=== PATIENT | male | born 1995 | race Caucasian/White ===

== ENCOUNTER 2018-04-15 19:19 | Emergency (ER) | payer SELFPAY ==
[~2018-04-15] VITALS: Ht 185.4 cm; Wt 82.2 kg
[~2018-04-15 19:19] MED LIST: ADDERALL15 MG OR; AMOXICILLIN875 MG OR; BACTRIM DS1 TAB OR; CLINDAMYCIN300 M1 PO; DOXYCYC MONO100 M1 OR; KEFLEX500 MG OR; NAPROSYN500 MG PO; NO HOME MEDS; PERCOCET 5/325M1 TAB OR; ULTRAM50 MG PO; ZITHROMAX250 MG PO; ZOFRAN4 MG/TAB PO
[2018-04-15 20:31] LABS: URINE BILIRUBIN - DIPSTICK NEGATIVE (NEGATIVE); URINE BLOOD DIPSTICK MODERATE (NEGATIVE); URINE COLOR YELLOW; URINE GLUCOSE - DIPSTICK NEGATIVE (NEGATIVE); URINE KETONE TRACE mg/dL (NEGATIVE); URINE LEUK ESTERASE LARGE (Negative); URINE NITRITE - DIPSTICK NEGATIVE (Negative); URINE PH 6.5 (4.5-8.0); URINE PROTEIN - DIPSTICK TRACE mg/dL (NEG-TRACE)
[2018-04-15 20:33] LABS: URINE CLARITY CLOUDY
[2018-04-15 20:41] LABS: URINE WBC >100 WBC/hpf (0-5)
[2018-04-15 21:07] VITALS: BP 115/63
== END 2018-04-15 21:34 | disposition home or self-care (01) | DRG 690 ==
LOC: ED 19:19
PROVIDERS: Emergency Medicine
DX: N34.2 Other urethritis (principal); B19.20 Unspecified viral hepatitis C without hepatic coma; F17.210 Nicotine dependence, cigarettes, uncomplicated

== ENCOUNTER 2018-11-14 13:34 | Emergency (ER) | payer SELFPAY ==
[~2018-11-14] VITALS: Ht 185.4 cm; Wt 90.9 kg
[2018-11-14 13:42] VITALS: BP 130/81
== END 2018-11-14 15:10 | disposition left against medical advice (07) | DRG 951 ==
LOC: ED 13:34 → LWOBS 15:09
DX: Z91.19 Patient's noncompliance with other medical treatment and regimen (principal)